=== PATIENT | male | born 1995 | race Caucasian/White ===

== ENCOUNTER 2021-01-27 16:52 | Emergency (ER) | payer OTHER ==
[~2021-01-27] VITALS: Ht 180.3 cm; Wt 131.8 kg
[2021-01-27 18:42] VITALS: BP 148/98
== END 2021-01-27 18:51 | disposition home or self-care (01) ==
LOC: EMS 16:52
DX: L05.91 Pilonidal cyst without abscess (principal)
CPT/HCPCS: 99283; Z7502